=== PATIENT | male | born 1990 | race Two or more races ===

== ENCOUNTER 2023-07-21 05:31 | Inpatient (IN) | payer MEDICAID ==
[~2023-07-21] VITALS: Ht 172.7 cm; Wt 78.0 kg
[2023-07-21] MEDS: SODIUM CHLORIDE 0.9% 500 ML IVB ONE (07:30)
[2023-07-21] MEDS: SODIUM CHLORIDE 0.9% 1,000 ML IV ONE (07:30)
[2023-07-21 07:51] LABS: Basophils # (auto) 0.1 10 ^3/uL (0-0.2); Basophils % (auto) 0.5 % (0.0-2.0); Eosinophils # (auto) 0.1 10 ^3/uL (0-0.8); Eosinophils % (auto) 0.7 % (0.0-7.0); Hematocrit 51.1 % (41.0-53.0); Hemoglobin 17.4 g/dL (13.5-17.5); Lymphocytes # (auto) 0.4 10 ^3/uL (0.4-5.4); Lymphocytes % (auto) 3.2 % (10.0-50.0); Mean Corpuscular Hemoglobin 31.1 pg (28.0-32.0); Mean Corpuscular Hgb Conc. 34.1 g/dL (32.0-36.0); Mean Corpuscular Volume 91.2 fL (80.0-100.0); Monocytes # (auto) 0.5 10 ^3/uL (0-1.3); Monocytes % (auto) 3.4 % (0.0-12.0); Neutrophils # (auto) 12.9 10 ^3/uL (1.6-8.6); Neutrophils % (auto) 92.2 % (37.0-80.0); Red Blood Cells 5.61 10^6/uL (4.5-5.90); Red Cell Distribution Width 13.2 % (11.8-14.3)
[2023-07-21 08:12] LABS: Alanine Aminotransferase 76 U/L (7-40); Albumin 4.9 g/dL (3.2-4.8); Alkaline Phosphatase 72 U/L (46-116); Anion Gap 8 (5-15); Aspartate Aminotransferase 64 U/L (13-40); BUN/Creatinine Ratio 14.2 (10.0-20.0); Blood Urea Nitrogen 17 mg/dL (9-23); Calcium 9.5 mg/dL (8.5-10.1); Carbon Dioxide 25 mmol/L (20-30); Chloride 103 mmol/L (98-107); Glucose 124 mg/dL (74-106); Potassium 4.2 mmol/L (3.5-5.1); Sodium 136 mmol/L (136-145); Total Protein 8.2 g/dL (5.7-8.2)
[2023-07-21] MEDS: METOCLOPRAMIDE HCL 5MG/ml INJ 2ml VIAL IV ONE (08:20)
[2023-07-21] MEDS: KETOROLAC TROMETH 30 MG/ML 1ML VIAL IV ONE (08:20)
[2023-07-21 08:24] LABS: Urine Bacteria FEW /hpf (None Seen); Urine Blood Negative /uL (Negative); Urine Clarity Clear (Clear); Urine Color Light-Yellow (Yellow); Urine Protein, UAD Negative (Negative); Urine Specific Gravity 1.025 (1.001-1.035); Urine Urobilinogen Normal (Negative); Urine WBC <1 /hpf (0 - 3)
[2023-07-21 09:06] LABS: Lipase 112 U/L (12-53)
[2023-07-21 09:07] LABS: Magnesium 2.1 mg/dL (1.6-2.6)
[2023-07-21] MEDS ORDERED: NITROGLYCERIN 0.4 MG SL TAB SL PRN (11:00)
[2023-07-21] MEDS ORDERED: ACETAMINOPHEN 325 MG TAB PO PRN (11:00)
[2023-07-21] MEDS ORDERED: MORPHINE SULFATE INJ 2 MG/ml SYRG IV PRN ×2 (11:00)
[2023-07-21] MEDS: metroNIDAZOLE 500MG/100ML 100 ML IV ONE (11:00)
[2023-07-21] MEDS ORDERED: DOCUSATE SOD 100 MG CAP PO PRN (11:00)
[2023-07-21] MEDS ORDERED: ONDANSETRON HCL 4 MG/2 ML VIAL IV PRN (11:00)
[2023-07-21] MEDS: cefTRIAXone 1GM/50ML D5W 50 ML IV ONE (11:00)
[2023-07-21] MEDS: SODIUM CHLORIDE 0.9% 1,000 ML IV SCH (11:25)
[2023-07-21] MEDS: PANTOPRAZOLE 40 MG/10 ML VIAL INJ IV ONE (11:30)
[2023-07-21] MEDS: HYDROcodone-ACET 5/325MG TAB PO PRN (13:00)
[2023-07-21] MEDS: metroNIDAZOLE 500MG/100ML 100 ML IV SCH (14:00)
[2023-07-21 15:40] VITALS: BP 115/61; PULSE 77; RESP 18; TEMP 98.5; O2SAT 96
[2023-07-21] MEDS ORDERED: TEST1INJ15 IM (16:21)
[2023-07-21] MEDS ORDERED: [UNRECOGNIZED DRUG - CODE] XX (16:29)
[2023-07-21 20:00] VITALS: PULSE 84; RESP 18; O2SAT 96
[2023-07-21 21:00] VITALS: BP 110/56; PULSE 84; RESP 18; TEMP 97.8; O2SAT 96
[2023-07-22 01:00] VITALS: BP 109/49; PULSE 79; RESP 18; TEMP 99; O2SAT 99
[2023-07-22 05:00] VITALS: BP 108/51; PULSE 61; RESP 18; TEMP 98.4; O2SAT 99
[2023-07-22 07:09] LABS: Alanine Aminotransferase 48 U/L (7-40); Albumin 3.8 g/dL (3.2-4.8); Alkaline Phosphatase 54 U/L (46-116); Anion Gap 7 (5-15); Aspartate Aminotransferase 33 U/L (13-40); BUN/Creatinine Ratio 11.2 (10.0-20.0); Bilirubin, Total 1.5 mg/dL (0.2-1.0); Blood Urea Nitrogen 14 mg/dL (9-23); Calcium 8.3 mg/dL (8.5-10.1); Carbon Dioxide 25 mmol/L (20-30); Chloride 106 mmol/L (98-107); Glucose 93 mg/dL (74-106); Potassium 3.9 mmol/L (3.5-5.1); Sodium 138 mmol/L (136-145); Total Protein 6.2 g/dL (5.7-8.2)
[2023-07-22 07:10] LABS: Basophils # (auto) 0 10 ^3/uL (0-0.2); Basophils % (auto) 0.8 % (0.0-2.0); Eosinophils # (auto) 0.1 10 ^3/uL (0-0.8); Eosinophils % (auto) 1.3 % (0.0-7.0); Hematocrit 41.1 % (41.0-53.0); Hemoglobin 13.9 g/dL (13.5-17.5); Lymphocytes # (auto) 0.9 10 ^3/uL (0.4-5.4); Lymphocytes % (auto) 20.7 % (10.0-50.0); Mean Corpuscular Hemoglobin 30.7 pg (28.0-32.0); Mean Corpuscular Hgb Conc. 33.8 g/dL (32.0-36.0); Mean Corpuscular Volume 90.6 fL (80.0-100.0); Monocytes # (auto) 0.6 10 ^3/uL (0-1.3); Monocytes % (auto) 14.3 % (0.0-12.0); Neutrophils # (auto) 2.7 10 ^3/uL (1.6-8.6); Neutrophils % (auto) 62.9 % (37.0-80.0); Nucleated Red Blood Cells % 0.2 %; Red Blood Cells 4.54 10^6/uL (4.5-5.90); Red Cell Distribution Width 12.9 % (11.8-14.3); White Blood Cell 4.3 10^3/uL (4.4-10.8)
[2023-07-22 09:00] VITALS: BP 107/48; PULSE 67; RESP 17; TEMP 98.2; O2SAT 95
[2023-07-22] MEDS: cefTRIAXone 1GM/50ML D5W 50 ML IV SCH (09:51)
[2023-07-22] MEDS: PANTOPRAZOLE 40 MG/10 ML VIAL INJ IV SCH (09:51)
[2023-07-22] MEDS ORDERED: PANT40TA2 PO (10:22)
[2023-07-22] MEDS: SODIUM CHLORIDE 0.9% 1,000 ML IV SCH (10:30)
[2023-07-22 11:39] VITALS: BP 107/48; PULSE 67; RESP 17; TEMP 98.2; O2SAT 95
[2023-07-22 13:00] VITALS: BP 110/50; PULSE 62; RESP 17; TEMP 97.9; O2SAT 97
== END 2023-07-22 14:25 | disposition home or self-care (01) | DRG 249 ==
LOC: ER 05:31 → OVERFLOW 11:01 → EAST 15:40
PROVIDERS: ADMIT Nurse Practitioner Family; ATTEND Internal Medicine
DX: K52.9 Noninfective gastroenteritis and colitis, unspecified (principal); R65.10 Systemic inflammatory response syndrome (SIRS) of non-infectious origin without acute organ dysfunction; A05.9 Bacterial foodborne intoxication, unspecified; R74.01 Elevation of levels of liver transaminase levels; Z79.899 Other long term (current) drug therapy
CPT/HCPCS: 36415; 74176; 76705; 80053; 81001; 83690; 83735; 85025; 85048; 87040; 87177; 96365; 96375; C9113; G0378; J1885; J3490

== ENCOUNTER 2024-10-17 23:02 | Emergency (ER) | payer MEDICAID ==
[~2024-10-17] VITALS: Ht 172.7 cm; Wt 75.0 kg
[~2024-10-17 23:02] MED LIST: PANT40TA2 PO; TEST1INJ15 IM; [UNRECOGNIZED DRUG - CODE] XX
[2024-10-17 23:21] VITALS: TEMP 98.7
[2024-10-17] MEDS ORDERED: AMOX875T4 PO (23:29)
[2024-10-17] MEDS ORDERED: IBUP-1456 PO (23:29)
--- NOTE | 2024-10-17 23:29 | ED.PDOC ---
History of Present Illness(SKN HPI Comments 34 year old male presents to ER with complaints of abscess x 3 days. Patient reports he developed an abscess on each buttock 3 days ago. He reports 10/10 pain to bilateral buttocks and denies use of medications for current symptoms. Patient presents to ER ambulatory on arrival with steady gait, in no distress. Denies fever, body aches, chills, n/v, abdominal pain, changes in BM or any further symptoms/complaints Chief Complaint: Abscess Time Seen by MD: 23:22 Primary Care Provider: UNKNOWN History of Present Illness: Nurses Notes, Medications, Allergies Allergies: Coded Allergies: NO KNOWN ALLERGIES (Unverified , 07/21/23) Home Meds Active Scripts Ibuprofen (Ibuprofen) 800 Mg Tab, 1 TAB PO TID PRN, #30 TAB 0 Refills Prov:ALFREDO SADLER 10/17/24 Amoxicillin & Pot Clavulanate (Amoxicillin/Potassium Cla) 875 Mg Tab, 1 TAB PO BID for 7 Days, #14 TAB 0 Refills Prov:ALFREDO SADLER 10/17/24 Pantoprazole Sodium Sesquihydr (Protonix) 40 Mg Tab, 40 MG PO DAILY for 30 Days, #30 TAB Prov:ARUN HASSAN MD 07/22/23 Reported Medications Nandrolone Decanoate (Nandrolone Decanoate) Decanoat Pow, 1 XX, POW 07/21/23 Testosterone Cypionate (Testosterone Cypionate) 100 Mg/Ml Inj, 100 MG IM, INJ 07/21/23 Information Source: Patient Mode of Arrival: Ambulatory Tetanus: UTD Past Medical History PAST MEDICAL HISTORY: Denies Surgical History: Denies all surgeries Family History Family History: Unknown Social History Smoker: Non-Smoker Alcohol: Denies ETOH Use Drugs: Denies Drug Use Lives In: Home Constitutional: denies: chills, diaphoresis, fatigue, fever, malaise, sweats, weakness, others EENTM: denies: blurred vision, double vision, ear bleeding, ear discharge, ear drainage, ear pain, ear ringing, eye pain, eye redness, hearing loss, mouth pain, mouth swelling, nasal discharge, nose bleeding, nose congestion, nose pain, photophobia, tearing, throat pain, throat swelling, voice changes, others Respiratory: denies: cough, hemoptysis, orthopnea, SOB at rest, shortness of breath, SOB with excertion, stridor, wheezing, others Cardiovascular: denies: chest pain, dizzy spells, diaphoresis, Dyspnea on exertion, edema, irregular heart beat, left arm pain, lightheadedness, palpitations, PND, syncope, others Gastrointestinal: denies: abdomen distended, abdominal pain, blood streaked bowels, constipated, diarrhea, dysphagia, difficulty swallowing, hematemesis, melena, nausea, poor appetite, poor fluid intake, rectal bleeding, rectal pain, vomiting, others Genitourinary: denies: burning, dysuria, flank pain, frequency, hematuria, incontinence, penile discharge, penile sore, pain, testicle pain, testicle swelling, urgency, others Neurological: denies: dizziness, fainting, headache, left sided numbness, left sided weakness, numbness, paresthesia, pre-existing deficit, right sided numbness, right sided weakness, seizure, speech problems, tingling, tremors, weakness, others Musculoskeletal: denies: back pain, gout, joint pain, joint swelling, muscle p ain, muscle stiffness, neck pain, others Integumetry: reports: others (As stated in HPI) Allergic/Immunocompromised: denies: Difficulty Healing, Frequent Infections, Hives, Itching, others Hematologic/Lymphatic: denies: anemia, blood clots, easy bleeding, easy bruising, swollen glands, others Endocrine: denies: excessive hunger, excessive sweating, excessive thirst, excessive urination, flushing, intolerance to cold, intolerance to heat, unexplained weight gain, unexplained weight loss, others Psychiatric: denies: anxiety, bipolar disorder, depression, hopeless, panic disorder, schizophrenia, sleepless, suicidal, others Physical Exam General Appearance: No Apparent Distress HEENT: PERRL/EOMI Neck: Full Range of Motion, Non-Tender, Normal Respiratory: Chest Non-Tender, Lungs Clear, No Accessory Muscle Use, No Respiratory Distress, Normal Breath Sounds Cardiovascular: No Murmur, No Gallop, Regular Rate/Rhythm Breast Exam: Deferred Gastrointestinal: Non Tender, No Pulsatile Mass, Soft Genitalia: Deferred Pelvic: Deferred Rectal: Deferred Extremities: Normal capillary refill, Normal range of motion Neurologic: Alert, No Motor Deficits, Normal Affect, Normal Mood, No Sensory Deficits Cerebellar Function: Normal Reflexes: Normal Skin: Dry, Warm, Other (Mild swelling/erythema/TTP centralized to right buttock and mild swelling/erythema/TTP noted to left lower buttock. No fluctuance/drainage/foreign body appreciated) Lymphatic: No Adenopathy Was a procedure done? Was a procedure done?: No Sedation Sedation?: No Differential Diagnosis (INTG) Differential Diagnosis: Abrasion Abscess: Abscess Differential Diagnosis: Retained Foreign Body X-Ray, Labs, Meds, VS Vital Signs Date Time Temp Pulse Resp B/P (MAP) Pulse Ox O2 Delivery O2 Flow Rate FiO2 10/17/24 23:21 98.7 96 18 128/74 (92) 95 98.7 Rocephin 1 g IM ordered Ibuprofen 800 mg p.o. ordered Advised to follow up with PCP in 1-2 days Patient verbalized understanding and agreeable with current plan of care Advised to return to ER immediately if symptoms worsen Time of 1ST Reevaluation: 23:02 Reevaluation 1ST: N/A Patient Education/Counseling: Diagnosis, Treatment, Prognosis, Need For Follow Up Family Education/Counseling: No Family Present SEPSIS Sepsis Screen Physician Orders Ceftriaxone Sodium (Rocephin) (10/17/24 23:30) Ibuprofen Tablet (Motrin Tablet) (10/17/24 23:30) Vital Signs Date Time Temp Pulse Resp B/P (MAP) Pulse Ox O2 Delivery O2 Flow Rate FiO2 10/17/24 23:21 98.7 96 18 128/74 (92) 95 98.7 Departure 1 Departure Time of Disposition: 23:22 Impression: Primary Impression: Cellulitis of right buttock Additional Impression: Cellulitis of left buttock Disposition: 01 HOME / SELF CARE / HOMELESS Condition: Stable e-Prescriptions Ibuprofen (Ibuprofen) 800 Mg Tab 1 TAB PO TID PRN, #30 TAB 0 Refills Prov: ALFREDO SADLER 10/17/24 Amoxicillin & Pot Clavulanate (Amoxicillin/Potassium Cla) 875 Mg Tab 1 TAB PO BID for 7 Days, #14 TAB 0 Refills Prov: ALFREDO SADLER 10/17/24 Critical Care Note Critical Care Time?: No Stability Stability form required: No Heart Score Heart Score: Heart Score Response (Comments) Value History N/A 0 EKG N/A 0 Age N/A 0 Risk Factors N/A 0 Troponin N/A 0 Total 0 ALFREDO SADLER Oct 17, 2024 23:29
[2024-10-18 00:11] VITALS: BP 120/68; PULSE 91; RESP 17; O2SAT 96
[2024-10-18] MEDS: IBUPROFEN 800 MG TAB PO ONE (00:11)
[2024-10-18] MEDS: cefTRIAXone SOD 1,000 MG VL IM ONE (00:11)
== END 2024-10-18 00:14 | disposition home or self-care (01) ==
LOC: ER 23:02
DX: L03.317 Cellulitis of buttock (principal); Z79.899 Other long term (current) drug therapy
CPT/HCPCS: 96372; 99283; J0696